=== PATIENT | female | born 2000 | race Caucasian/White ===

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

== ENCOUNTER 2025-08-16 07:36 | Inpatient (IN) ==
[2025-08-16] MEDS ORDERED: OXYTOCIN 30 UNITS/NSS 30 UNITS/500 ML BAG IV PRN (07:54)
[2025-08-16] MEDS ORDERED: LIDOCAINE 1% LOCAL 20 ML VIAL INFIL PRN (07:54)
[2025-08-16 08:23] LABS: Hematocrit (blood only) 29.6 % (37.0-47.0); Hemoglobin 9.1 g/dl (12.0-16.0); Mean Corpuscular Hemoglobin 23.6 pg (25.0-34.0); Mean Corpuscular Volume 76.9 fL (80.0-100.0); Platelet Count 277 K/uL (130-400); RDW Standard Deviation 43.3 fL (36.4-46.3); Red Blood Count 3.85 M/uL (4.20-5.40); White Blood Count 11.53 K/ul (4.8-10.8)
--- NOTE | 2025-08-16 08:39 | History & Physical Report ---
Date of Service August 16, 2025 Assessment & Plan (1) Normal labor: Plan: Pt is a 25yo at 39w 6d with obesity presenting for induction of labor Routine labs ordered Pitocin ordered Epidural placement on demand Monitor tracing Expectant management for labor, anticipate Rh+, Rubella immune Hepatitis B not immune, needs vaccine outpatient with PCP (2) Obesity affecting , antepartum: Admission and Anticipated Discharge Date Admission Date: August 16, 2025 History of Present Illness Primary Care Provider: Anu Maynard DO Pt is a 25y/o female currently at 39w 6d with an DAVID 08/17/25 who is here for induction of labor. Benavides bulb placed 08/15/25. Not feeling contractions; adequate movement; no fluid loss; no bloody show. Hx of obesity and insulin resistance. Had regular appointments with OB. OB Labs: Blood Type O Positive 01/25/25 Antibody Screen NEGATIVE 01/25/25 Hgb 9.8 g/dl (12.0-16.0) L 07/07/25 Hct 31.5 % (37.0-47.0) L 07/07/25 MCV 78.6 fL (80.0-100.0) L 01/25/25 Plt Count 370 K/uL (130-400) 01/25/25 Rubella IgG Antibody Immune (Immune) 01/25/25 RPR NON-REACTIVE (NON-REACTIVE) 03/19/23 Treponema pallidum Ab Negative (Negative) 06/04/25 Hep Bs Antigen Negative (Negative) 01/25/25 Hep Bs Antigen NON-REACTIVE (NON-REACTIVE) 03/19/23 Hepatitis C Antibody Negative (Negative) 01/25/25 Hepatitis C Ab (EIA) NON-REACTIVE (NON-REACTIVE) 03/19/23 HIV 1&2 Ab/P24 Ag 4thGn Negative (Negative) 01/25/25 HIV (1&2) Ag & Ab Conf NON-REACTIVE (NON-REACTIVE) 03/19/23 Glucose 1 Hr 50 gm 137 mg/dl (70-130) H 03/03/25 Maternal Serum AFP 21.0 ng/mL 03/03/25 Chlamydia trachomatis RNA Not Detected (NotDetected) 01/25/25 Neisseria gonorrhoeae RNA Not Detected (NotDetected) 01/25/25 Alpha Fetoprotein Triple Screen SEE NOTE 03/03/25 Labs Reviewed: afp neg low risk pano neg horizon Review of Systems : Denies fever, chills, sweats Denies shortness of breath, difficulty breathing, chest pain, palpitations, chest pressure, dysuria, headache, vision changes Allergies Allergy/AdvReac Type Severity Reaction Status Date / Time No Known Allergies Allergy Verified 08/15/25 19:42 Home Medications Medication Instructions Recorded Confirmed Type prenat.vits,sherry,[id number] 1 tab PO DAILY 03/14/23 08/16/25 History ferrous sulfate [Iron (ferrous 1 tab PO DAILY 06/10/25 08/16/25 History sulfate)] aspirin 81 mg tablet,delayed 1 mg PO DAILY 08/15/25 08/16/25 History release Patient History Medical History Insulin resistance Missed Anxiety History of chicken pox Pulmonary valve regurgitation Atrial septal defect Surgical History S/P wisdom tooth extraction S/P atrial septal defect closure, surgical (2019) History of tonsillectomy and adenoidectomy Family History Father Asthma Aunt Colorectal cancer Mother Thyroid cancer Denies family history of Ovarian cancer Breast cancer Social History (Updated 08/16/25 @ 07:57 by Briana Driver RN) Smoking Status: Never smoker Do You Dip or Chew Tobacco: No; Hx Alcohol Use: No Hx Substance Use: No Preferred Language: Martiniquais Communication Ability: Effective Visual Impairment: Limited Hearing Ability: Normal Senior [employer] Etl Developer Required: No Beliefs That Will Affect Care: None marital status: marital status details: jaja Watts (25) [phone] Current Living Situation: Spouse Current Living Situation Comment: lives with Tre and dog current occupational status: employed current occupation: [employer] Other Information That Helps Us Care for You: No Feels Safe at Home: Yes Safety Concerns: Feels Safe At This Time Diet: regular Physical Activity Frequency: Does not Exercise Gender Identity: Female Review of Systems per HPI Physical Exam Physical Exam: General: patient resting comfortably, NAD, non-toxic in appearance, AAOx4, answers questions appropriately. Skin: warm, dry, intact HEENT: NC/AT, anicteric sclera, conjunctiva without injection Heart: S1/S2 heard, regular, no m/r/g Lungs: equal air entry bilaterally, no rales/rhonchi/wheezes Abd: Normoactive BS, soft, NT/ND, gravid uterus Ext: warm, no clubbing/cyanosis or edema Neuro: nonfocal, speech intact, no facial droop, moving all extremities on command : FHR baseline 120, moderate variability, accelerations present, decelerations absent, rare contractions. Category 1 tracing Results & Data Vital Signs (Past 12 Hours) Vital Signs Temp Pulse Resp BP 08/16/25 07:51 36.7 C 97 H 20 142/74 H Resident Activity Tracking Resident Involvement: Resident Care Provided Care Provided: OB Delivery
[2025-08-16 08:40] LABS: Alanine Aminotransferase 28.0 U/L (7-52); Albumin Globulin Ratio 1.0 (0.9-2); Albumin Level 3.3 gm/dl (3.4-5.0); Alkaline Phosphatase 162.0 U/L (34-104); Anion Gap 7.0 (3-11); Bilirubin,Total 0.8 mg/dl (0.2-1.0); Blood Urea Nitrogen 6.0 mg/dl (6-23); Calcium 8.8 mg/dl (8.6-10.3); Carbon Dioxide 22.0 mmol/L (21-32); Chloride 107.0 mmol/L (98-107); Creatinine Clr Calc Pharmacy 197.3 ml/min; Globulin 3.3 gm/dl (2.5-4.0); Glucose 88.0 mg/dl (70-99(Fasting)); Potassium 4.0 mmol/L (3.5-5.1); Sodium 136.0 mmol/L (136-145); Total Protein 6.6 gm/dl (6.0-8.3)
[2025-08-16] MEDS: LACTATED RINGER'S 1,000 ML IV PRN (09:23)
[2025-08-16] MEDS: OXYTOCIN 30 UNITS/NSS 30 UNITS/500 ML BAG IV PRN (09:28)
[2025-08-16] MEDS ORDERED: NALOXONE HCL 1 MG in SODIUM CHLORIDE 0.9% 1,000 ML IV PRN (12:55)
[2025-08-16] MEDS ORDERED: NALBUPHINE HCL INJ 10 MG/ML AMP IV PRN (12:55)
[2025-08-16] MEDS ORDERED: BUPIVACAINE 0.25% PF 30 ML VIAL EPI PRN (12:55)
[2025-08-16] MEDS ORDERED: ROPIVACAINE 0.5% PF 5 MG/ML 20 ML VIAL EPI PRN (12:55)
[2025-08-16] MEDS ORDERED: diphenhydrAMINE 50 MG/ML VIAL IV PRN (12:55)
[2025-08-16] MEDS ORDERED: NALOXONE HCL 0.4 MG/1 ML VIAL/CARP IV PRN (12:55)
[2025-08-16] MEDS ORDERED: SODIUM CHLORIDE 0.9% PF INJ 10 ML VIAL EPI PRN (12:55)
[2025-08-16] MEDS ORDERED: LIDOCAINE 2% MPF LOCAL 5 ML VIAL EPI PRN (12:55)
[2025-08-16] MEDS ORDERED: ONDANSETRON INJ 2 MG/ML 2 ML VIAL IV PRN (12:55)
--- NOTE | 2025-08-16 12:56 | Anesthesiology Consultation ---
Date of Service August 16, 2025 History Height/Weight Height: 5 ft 3 in Weight: 128.457 kg Allergies Allergy/AdvReac Type Severity Reaction Status Date / Time No Known Allergies Allergy Verified 08/15/25 19:42 Medications Home Medications Medication Instructions Recorded Confirmed Last Taken prenat.vits,sherry,kgn-[id number] 1 tab PO DAILY 03/14/23 08/16/25 08/15/25 07:45 ferrous sulfate [Iron (ferrous 1 tab PO DAILY 06/10/25 08/16/25 08/15/25 20:00 sulfate)] aspirin 81 mg tablet,delayed 1 mg PO DAILY 08/15/25 08/16/25 08/15/25 07:45 release Active Medications Generic Name Dose Route Start Last Admin Trade Name Freq PRN Reason Stop Dose Admin Oxytocin 30 units in 500 mls @ 13 mls/hr 08/16/25 07:55 08/16/25 12:38 Pitocin 30 Units/Nss IV 08/18/25 07:54 0.78 units/hr .Q24H PRN 13 mls/hr Labor Induction/Augmentation Titration Protocol 0.78 UNITS/HR Lactated Ringer's 1,000 mls @ 125 mls/hr 08/16/25 07:54 08/16/25 12:38 Lr IV 08/18/25 07:53 999 mls/hr .Q8H PRN Infusion L&D Protocol Protocol Past Medical History Medical History Insulin resistance Missed Anxiety History of chicken pox Pulmonary valve regurgitation Atrial septal defect Exercise / Class Metabolic Activity II 4-5 Yardwork/Stairs/Walk up hill Past Family History Family History Father Asthma Aunt Colorectal cancer Mother Thyroid cancer Denies family history of Ovarian cancer Breast cancer Past Surgical History Surgical History S/P wisdom tooth extraction S/P atrial septal defect closure, surgical (2019) History of tonsillectomy and adenoidectomy Social History Smoking Status: Never smoker Do You Dip or Chew Tobacco: No Hx Alcohol Use: No Hx Substance Use: No Physical Exam Vital Signs Last Vital Signs Temp 36.6 C 08/16/25 11:58 Pulse 90 08/16/25 13:16 Resp 16 08/16/25 13:06 BP 119/63 08/16/25 13:16 Pulse Ox 100 08/16/25 13:15 Testing Laboratory Results 08/16/25 08:05 08/16/25 08:05 Blood Type O Positive 08/16/25 08:05 Antibody Screen NEGATIVE 08/16/25 08:05
[2025-08-16] MEDS: LIDOCAINE 2%/EPINEPHRINE 1:200,000 20 ML PF ONE (13:27)
[2025-08-16] MEDS: BUPIVACAINE 0.25% PF 30 ML VIAL ONE (13:27)
[2025-08-16] MEDS: fentANYL 2 MCG/ML BUPIVacaine 0.125%-NSS 100ML BAG ONE (13:28)
[2025-08-16] MEDS: SODIUM CHLORIDE 0.9% PF INJ 10 ML VIAL ONE (13:38)
[2025-08-16] MEDS: LIDOCAINE 2%/EPINEPHRINE 1:200,000 20 ML PF EPI STA (20:47)
[2025-08-16] MEDS: BUPIVACAINE 0.25% PF 30 ML VIAL EPI STA (20:47)
[2025-08-16] MEDS: SODIUM CHLORIDE 0.9% PF INJ 10 ML VIAL EPI STA (20:49)
--- NOTE | 2025-08-16 22:49 | Labor Progress Brief Note ---
Date of Service August 16, 2025 Subjective Comfortable with epidural. Assessment & Plan (1) Encounter for induction of labor: Plan: IOL due to obesity, BMI >40. Cervical rivera placed last night, before which cervix was cl/th/hi. This morning, cervix had external os 4cm which was reported as her exam, but internal os 1-2cm on my first check. This suggests rivera balloon was in, rather than above, the cervical canal, and the internal os was minimally dilated when pit began. Pitocin was run through the day today bringing internal os to 2-3cm. AROM was then performed. Pitocin reached 19 mu/min and internal os was still just 2-3cm, with contractions spacing apart. Receptor saturation was suspected, and a pit break was used. Resumption of pitocin proceeded after the break, with contraction pattern Q2- 3min at 7 mu/min. Internal os now matches external os at 4cm. FSE and IUPC placed at nursing request as patient is repositioning frequently and obesity makes monitoring difficult. Now seeing FHT Cat 1 after repositioning, [place] Q3 and individual contractions each about 50 MVU with pit @ 7, monitors both reading well. Admission and Anticipated Discharge Date Admission Date: August 16, 2025 Physical Exam Genitourinary: /-1 LOF Clear FSE and IUPC placed Pit @ 7 FHT Cat 1 prior to exam, 2x late decels seen after exam that resolved with repositioning. Results & Data Vital Signs (Past 12 Hours) Vital Signs Temp Pulse Resp BP Pulse Ox 08/16/25 22:45 113 H 98 08/16/25 22:40 92 H 100 08/16/25 22:35 91 H 98 08/16/25 22:31 101 H 114/67 08/16/25 22:30 96 H 100 08/16/25 22:25 100 H 99 08/16/25 22:20 99 H 98 08/16/25 22:16 93 H 114/57 L 08/16/25 22:15 90 98 08/16/25 22:10 104 H 100 08/16/25 22:05 97 H 100 08/16/25 22:02 97 H 113/60 08/16/25 22:00 89 97 08/16/25 21:55 97 H 98 08/16/25 21:50 90 98 08/16/25 21:46 94 H 108/58 L 08/16/25 21:45 83 97 08/16/25 21:40 94 H 97 08/16/25 21:35 97 H 98 08/16/25 21:31 95 H 113/57 L 08/16/25 21:30 94 H 97 08/16/25 21:25 97 H 98 08/16/25 21:20 97 H 98 08/16/25 21:16 97 H 115/58 L 08/16/25 21:15 96 H 98 08/16/25 21:10 98 H 99 08/16/25 21:05 96 H 99 08/16/25 21:01 98.2 F 95 H 18 118/62 08/16/25 21:00 97 H 100 08/16/25 20:55 101 H 99 08/16/25 20:50 95 H 99 08/16/25 20:47 100 H 117/63 08/16/25 20:45 91 H 99 08/16/25 20:40 105 H 99 08/16/25 20:35 97 H 98 08/16/25 20:31 98 H 118/65 08/16/25 20:30 105 H 99 08/16/25 20:25 103 H 99 08/16/25 20:20 93 H 99 08/16/25 20:17 96 H 128/67 08/16/25 20:15 98 H 99 08/16/25 20:10 108 H 99 08/16/25 20:05 104 H 99 08/16/25 20:02 106 H 120/65 08/16/25 20:00 102 H 99 08/16/25 19:55 98 H 100 08/16/25 19:50 93 H 99 08/16/25 19:45 93 H 99 08/16/25 19:40 93 H 99 08/16/25 19:35 93 H 99 08/16/25 19:31 89 141/88 H 08/16/25 19:30 90 98 08/16/25 19:25 90 100 08/16/25 19:20 98 H 100 08/16/25 19:17 93 H 140/81 08/16/25 19:15 87 99 08/16/25 19:10 95 H 100 08/16/25 19:05 97 H 99 08/16/25 19:01 83 143/76 H 08/16/25 19:00 98.2 F 18 08/16/25 19:00 93 H 99 08/16/25 18:55 87 98 08/16/25 18:50 93 H 100 08/16/25 18:47 89 137/85 08/16/25 18:45 93 H 97 08/16/25 18:40 88 100 08/16/25 18:35 95 H 100 08/16/25 18:32 87 141/82 H 08/16/25 18:30 92 H 99 08/16/25 18:25 91 H 99 08/16/25 18:20 93 H 99 08/16/25 18:16 98.2 F 100 H 18 133/79 08/16/25 18:15 93 H 98 08/16/25 18:10 88 98 08/16/25 18:05 96 H 97 08/16/25 18:02 92 H 142/85 H 08/16/25 18:00 94 H 98 08/16/25 17:55 101 H 99 08/16/25 17:50 101 H 99 08/16/25 17:46 96 H 141/72 H 08/16/25 17:45 97 H 100 08/16/25 17:40 104 H 100 08/16/25 17:35 107 H 100 08/16/25 17:32 100 H 142/86 H 08/16/25 17:30 96 H 98 08/16/25 17:25 99 H 98 08/16/25 17:24 98.1 F 18 08/16/25 17:20 93 H 99 08/16/25 17:16 97 H 145/88 H 08/16/25 17:15 88 100 08/16/25 17:10 96 H 100 08/16/25 17:05 94 H 99 08/16/25 17:03 86 135/77 08/16/25 17:00 85 100 08/16/25 16:55 85 100 08/16/25 16:50 82 100 08/16/25 16:46 88 137/73 08/16/25 16:45 84 100 08/16/25 16:40 92 H 100 08/16/25 16:35 86 100 08/16/25 16:31 81 142/76 H 08/16/25 16:30 83 100 08/16/25 16:25 91 H 100 08/16/25 16:20 85 100 08/16/25 16:16 90 141/83 H 08/16/25 16:15 98 H 100 08/16/25 16:10 90 99 08/16/25 16:05 93 H 100 08/16/25 16:03 82 140/74 08/16/25 16:00 92 H 100 08/16/25 15:57 88 91 08/16/25 15:55 96 H 100 08/16/25 15:50 82 100 08/16/25 15:47 78 131/77 08/16/25 15:45 83 100 08/16/25 15:40 81 100 08/16/25 15:35 77 100 08/16/25 15:31 83 149/78 H 08/16/25 15:30 98.2 F 20 08/16/25 15:30 88 100 08/16/25 15:25 85 100 08/16/25 15:20 79 100 08/16/25 15:16 82 127/75 08/16/25 15:15 83 100 08/16/25 15:10 80 100 08/16/25 15:05 80 100 08/16/25 15:02 73 134/73 08/16/25 15:00 78 100 08/16/25 14:55 85 100 08/16/25 14:50 78 100 08/16/25 14:48 86 140/77 08/16/25 14:45 105 H 100 08/16/25 14:40 79 100 08/16/25 14:35 74 100 08/16/25 14:31 84 119/67 08/16/25 14:30 86 100 08/16/25 14:25 79 100 08/16/25 14:20 85 100 08/16/25 14:17 88 123/71 08/16/25 14:15 98.1 F 18 08/16/25 14:15 81 100 08/16/25 14:10 82 100 08/16/25 14:05 92 H 100 08/16/25 14:02 93 H 127/72 08/16/25 14:00 81 100 08/16/25 13:55 90 100 08/16/25 13:50 82 100 08/16/25 13:47 85 121/59 L 08/16/25 13:45 83 100 08/16/25 13:40 87 100 08/16/25 13:35 88 100 08/16/25 13:30 85 112/62 100 08/16/25 13:28 88 113/61 08/16/25 13:26 107 H 107/60 08/16/25 13:25 102 H 100 08/16/25 13:24 102 H 103/56 L 08/16/25 13:22 96 H 109/55 L 08/16/25 13:20 118 H 100 08/16/25 13:16 90 119/63 08/16/25 13:15 98.2 F 20 08/16/25 13:15 92 H 100 08/16/25 13:10 97 H 100 08/16/25 13:06 107 H 16 136/65 08/16/25 13:05 112 H 100 08/16/25 11:58 97.9 F 20 08/16/25 11:57 90 145/77 H 08/16/25 11:12 82 18 136/75 08/16/25 10:56 89 128/77 Coding Level of Care Code None Diagnoses Encounter for induction of labor Z34.90
[2025-08-16] MEDS: fentANYL 2 MCG/ML BUPIVacaine 0.125%-NSS 100ML BAG EPI PRN (22:50)
--- NOTE | 2025-08-17 05:04 | Labor Progress Brief Note ---
Date of Service August 17, 2025 Subjective Comfortable with epidural Assessment & Plan (1) Encounter for induction of labor: Plan: Adequate labor for >6 hours without dilation beyond 4cm. FTP diagnosed and patient advised of recommendation for . Patient, FOB and her mom all counseled and agree to proceed, consent signed, all questions answered. Admission and Anticipated Discharge Date Admission Date: August 16, 2025 Physical Exam Genitourinary: Cervix remains 4/50/-1, unchanged LOF clear FHT Cat1 [place] Q3 MVU adequate for >6 hours at this point Results & Data Vital Signs (Past 12 Hours) Vital Signs Temp Pulse Resp BP Pulse Ox 08/17/25 05:00 99 H 99 08/17/25 04:55 102 H 99 08/17/25 04:50 100 H 99 08/17/25 04:45 100 H 100 08/17/25 04:40 95 H 98 08/17/25 04:35 93 H 99 08/17/25 04:31 91 H 132/80 08/17/25 04:30 100 H 99 08/17/25 04:25 102 H 99 08/17/25 04:20 83 98 08/17/25 04:16 100 H 124/72 08/17/25 04:15 86 98 08/17/25 04:10 89 97 08/17/25 04:05 90 97 08/17/25 04:01 91 H 122/66 08/17/25 04:00 86 99 08/17/25 03:55 90 97 08/17/25 03:50 88 98 08/17/25 03:46 79 122/62 08/17/25 03:45 88 96 08/17/25 03:40 92 H 98 08/17/25 03:37 18 08/17/25 03:37 98.1 F 18 08/17/25 03:35 94 H 98 08/17/25 03:33 103 H 117/58 L 08/17/25 03:30 90 98 08/17/25 03:25 92 H 97 08/17/25 03:20 93 H 98 08/17/25 03:17 94 H 112/56 L 08/17/25 03:15 101 H 98 08/17/25 03:10 93 H 98 08/17/25 03:05 96 H 99 08/17/25 03:02 94 H 111/60 10/22/25 03:00 95 H 98 08/17/25 02:55 98 H 98 08/17/25 02:50 99 H 98 08/17/25 02:47 93 H 112/59 L 08/17/25 02:45 93 H 98 08/17/25 02:40 89 98 08/17/25 02:35 91 H 98 08/17/25 02:31 90 99/57 L 08/17/25 02:30 93 H 98 08/17/25 02:25 96 H 97 08/17/25 02:20 87 100 08/17/25 02:17 89 96/57 L 08/17/25 02:15 93 H 98 08/17/25 02:10 90 98 08/17/25 02:05 93 H 98 08/17/25 02:01 90 102/51 L 08/17/25 02:00 95 H 97 08/17/25 01:55 92 H 98 08/17/25 01:50 87 97 08/17/25 01:46 86 107/61 08/17/25 01:45 77 100 08/17/25 01:40 94 H 97 08/17/25 01:35 86 98 08/17/25 01:31 86 108/57 L 08/17/25 01:30 84 99 08/17/25 01:25 84 98 08/17/25 01:24 18 08/17/25 01:24 98.2 F 18 08/17/25 01:21 92 H 110/63 08/17/25 01:20 93 H 99 08/17/25 01:15 96 H 97 08/17/25 01:10 76 98 08/17/25 01:05 96 H 98 08/17/25 01:00 100 H 98 08/17/25 00:55 96 H 98 08/17/25 00:50 93 H 97 08/17/25 00:47 88 109/57 L 08/17/25 00:45 81 98 08/17/25 00:40 89 97 08/17/25 00:35 89 98 08/17/25 00:32 91 H 129/71 08/17/25 00:30 95 H 97 08/17/25 00:25 94 H 97 08/17/25 00:20 84 98 08/17/25 00:18 92 H 119/58 L 08/17/25 00:15 95 H 97 08/17/25 00:10 89 96 08/17/25 00:05 89 97 08/17/25 00:02 88 133/75 08/17/25 00:00 81 96 08/16/25 23:55 90 97 08/16/25 23:50 92 H 96 08/16/25 23:47 93 H 115/61 08/16/25 23:45 82 97 08/16/25 23:40 88 99 08/16/25 23:35 80 98 08/16/25 23:33 97 H 126/61 08/16/25 23:30 94 H 99 08/16/25 23:25 100 H 100 08/16/25 23:20 92 H 98 08/16/25 23:18 94 H 130/71 08/16/25 23:15 108 H 99 08/16/25 23:10 100 H 97 08/16/25 23:05 95 H 100 08/16/25 23:02 100 H 136/73 08/16/25 23:01 16 08/16/25 23:01 98.1 F 16 08/16/25 23:00 99 H 97 08/16/25 22:55 97 H 97 08/16/25 22:50 103 H 97 08/16/25 22:45 113 H 98 08/16/25 22:40 92 H 100 08/16/25 22:35 91 H 98 08/16/25 22:31 101 H 114/67 08/16/25 22:30 96 H 100 08/16/25 22:25 100 H 99 08/16/25 22:20 99 H 98 08/16/25 22:16 93 H 114/57 L 08/16/25 22:15 90 98 08/16/25 22:10 104 H 100 08/16/25 22:05 97 H 100 08/16/25 22:02 97 H 113/60 08/16/25 22:00 89 97 08/16/25 21:55 97 H 98 08/16/25 21:50 90 98 08/16/25 21:46 94 H 108/58 L 08/16/25 21:45 83 97 08/16/25 21:40 94 H 97 08/16/25 21:35 97 H 98 08/16/25 21:31 95 H 113/57 L 08/16/25 21:30 94 H 97 08/16/25 21:25 97 H 98 08/16/25 21:20 97 H 98 08/16/25 21:16 97 H 115/58 L 08/16/25 21:15 96 H 98 08/16/25 21:10 98 H 99 08/16/25 21:05 96 H 99 08/16/25 21:01 98.2 F 95 H 18 118/62 08/16/25 21:00 97 H 100 08/16/25 20:55 101 H 99 08/16/25 20:50 95 H 99 08/16/25 20:47 100 H 117/63 08/16/25 20:45 91 H 99 08/16/25 20:40 105 H 99 08/16/25 20:35 97 H 98 08/16/25 20:31 98 H 118/65 08/16/25 20:30 105 H 99 08/16/25 20:25 103 H 99 08/16/25 20:20 93 H 99 08/16/25 20:17 96 H 128/67 08/16/25 20:15 98 H 99 08/16/25 20:10 108 H 99 08/16/25 20:05 104 H 99 08/16/25 20:02 106 H 120/65 08/16/25 20:00 102 H 99 08/16/25 19:55 98 H 100 08/16/25 19:50 93 H 99 08/16/25 19:45 93 H 99 08/16/25 19:40 93 H 99 08/16/25 19:35 93 H 99 08/16/25 19:31 89 141/88 H 08/16/25 19:30 90 98 08/16/25 19:25 90 100 08/16/25 19:20 98 H 100 08/16/25 19:17 93 H 140/81 08/16/25 19:15 87 99 08/16/25 19:10 95 H 100 08/16/25 19:05 97 H 99 08/16/25 19:01 83 143/76 H 08/16/25 19:00 98.2 F 18 08/16/25 19:00 93 H 99 08/16/25 18:55 87 98 08/16/25 18:50 93 H 100 08/16/25 18:47 89 137/85 08/16/25 18:45 93 H 97 08/16/25 18:40 88 100 08/16/25 18:35 95 H 100 08/16/25 18:32 87 141/82 H 08/16/25 18:30 92 H 99 08/16/25 18:25 91 H 99 08/16/25 18:20 93 H 99 08/16/25 18:16 98.2 F 100 H 18 133/79 08/16/25 18:15 93 H 98 08/16/25 18:10 88 98 08/16/25 18:05 96 H 97 08/16/25 18:02 92 H 142/85 H 08/16/25 18:00 94 H 98 08/16/25 17:55 101 H 99 08/16/25 17:50 101 H 99 08/16/25 17:46 96 H 141/72 H 08/16/25 17:45 97 H 100 08/16/25 17:40 104 H 100 08/16/25 17:35 107 H 100 08/16/25 17:32 100 H 142/86 H 08/16/25 17:30 96 H 98 08/16/25 17:25 99 H 98 08/16/25 17:24 98.1 F 18 08/16/25 17:20 93 H 99 08/16/25 17:16 97 H 145/88 H 08/16/25 17:15 88 100 08/16/25 17:10 96 H 100 08/16/25 17:05 94 H 99 08/16/25 17:03 86 135/77 Coding Level of Care Code None Diagnoses Encounter for induction of labor Z34.90
[2025-08-17] MEDS ORDERED: LACTATED RINGER'S 1,000 ML IV SCH ×3 (05:15→06:42)
[2025-08-17] MEDS ORDERED: MoRPHine SULFATE PF 1 MG/ML 10 ML AMP/VIAL ONE (05:18)
[2025-08-17] MEDS ORDERED: METOCLOPRAMIDE HCL INJ 5 MG/ML 2 ML VIAL ONE (05:19)
[2025-08-17] MEDS ORDERED: ONDANSETRON INJ 2 MG/ML 2 ML VIAL ONE (05:19)
[2025-08-17] MEDS ORDERED: OXYTOCIN 10 UNITS/ML VIAL ONE (05:19)
[2025-08-17] MEDS ORDERED: DEXAMETHASONE SOD INJ 4 MG/ML VIAL ONE (05:19)
[2025-08-17] MEDS: ACETAMINOPHEN 500 MG TAB PO SCH (05:25)
[2025-08-17] MEDS: CITRIC ACID/SODIUM CITRATE 15 ML UDC PO SCH (05:26)
[2025-08-17] MEDS ORDERED: PHENYLEPHRINE HCL 10 MG/ML VIAL ONE (05:27)
[2025-08-17] MEDS ORDERED: LIDOCAINE 2%/EPINEPHRINE 1:200,000 20 ML PF ONE (05:30)
[2025-08-17] MEDS: ceFAZolin 3000MG 3,000 MG/72.5 ML BAG IV SCH (05:37)
[2025-08-17] MEDS ORDERED: NALBUPHINE HCL INJ 10 MG/ML AMP IV PRN (06:10)
[2025-08-17] MEDS ORDERED: ONDANSETRON INJ 2 MG/ML 2 ML VIAL IV PRN (06:10)
[2025-08-17] MEDS ORDERED: LACTATED RINGER'S 500 ML IV PRN (06:10)
[2025-08-17] MEDS ORDERED: diphenhydrAMINE 50 MG/ML VIAL IV PRN (06:10)
[2025-08-17] MEDS ORDERED: PROMETHAZINE 6.25 MG/50.25 ML BAG IV PRN (06:10)
[2025-08-17] MEDS ORDERED: NALOXONE HCL 0.4 MG/1 ML VIAL/CARP IV PRN (06:10)
[2025-08-17] MEDS ORDERED: MoRPHine SULFATE 4 MG/ML 1 ML CARP\\VIAL IV PRN (06:10)
[2025-08-17] MEDS ORDERED: NALOXONE HCL 1 MG in SODIUM CHLORIDE 0.9% 1,000 ML IV PRN (06:10)
[2025-08-17] MEDS ORDERED: NALOXONE HCL 0.08 MG in SYRINGE 1.8 ML IV PRN (06:10)
[2025-08-17] MEDS ORDERED: NO NARCOTICS OR SEDATIVES SCH (06:15)
[2025-08-17] MEDS ORDERED: DC INTRASPINAL MORPHINE SCH (06:15)
--- NOTE | 2025-08-17 06:32 | Operative Report ---
PG Post Operative Report Pre & Post Diagnosis Operation Date: 08/17/25 05:25 Pre-Op Diagnosis: Primary Csection, Failure to Progress Post-Op Diagnosis: Primary Csection, Failure to progress, with delivery of Live male infant I identified the patient and participated in the time-out.: Yes Procedure Operation Date: 08/17/25 05:25 Primary Low Transverse section Surgeon Mulu Allen MD Elevator Constructor Hydraulic Catrachito Estimated Blood Loss 364 Findings Consistent with Post-Op Diagnosis Specimens placenta, cord blood Anesthesia Type Spinal Complications none Disposition Accompanied Patient To Recovery: Yes Disposition: L&D Description of Procedure The patient was placed operating table in the supine position with a leftward tilt. She was prepped and draped in standard sterile fashion. The anesthetic was tested and found to be adequate. A time-out was held, identifying correct patient, procedure, positioning and preoperative antibiotics. There were no concerns. A Pfannenstiel skin incision was made with a knife and taken down to the underlying layer of fascia. The fascia was incised in the midline with the knife and taken out laterally with scissors. The superior edge of the fascial incision was grasped, elevated and dissected off the underlying rectus both superiorly and inferiorly. The muscles were bluntly in the midline. The peritoneum was entered bluntly. The incision was then stretched. The Petr retractor was placed. The vesicouterine peritoneum was identified, entered with scissors and taken out laterally with scissors. The bladder flap was created digitally. A hysterotomy incision was created transversely in the lower uterine segment, final entry being accomplished in a blunt manner with the screener operator's fingers. Clear amniotic fluid was encountered. The screener operator's hand and a Kiwi cup were used to elevate the head to the hysterotomy. The head was delivered using mild fundal pressure, and the shoulders and body followed without difficulty. The cord was clamped and cut and the was then handed off to the awaiting auto service station attendant. Cord blood was obtained. The placenta was Manually extracted. The uterus was cleared of all clot and debris with moistened laparotomy sponges. The hysterotomy incision was repaired in two layers, the first in a running locked layer, the second in an imbricating layer. The ovaries and tubes were seen to be normal bilaterally. The gutters were cleared of clot and debris. A final inspection of the hysterotomy revealed good hemostasis. The Petr was removed. The rectus muscles were allowed to reapproximate naturally. The fascia was then reapproximated with 1 Vicryl in a running nonlocked manner. The fascia was examined and found to be free of defect following closure. The subcutaneous tissue was copiously irrigated and reapproximated with 0-chromic, then the skin edges were closed with 4-0 monocryl in a subcuticular fashion. A CARLOS MANUEL dressing was applied. The rivera was found to be draining clear yellow urine at completion of the procedure. I attest to the content of the Intraoperative Record and any orders documented therein. Any exceptions are noted below. I attest to the content of the Intraoperative Record and any orders documented therein. Any exceptions are noted below.
--- NOTE | 2025-08-17 06:38 | Anesthesia Procedure Note ---
Date of Service August 17, 2025 Anesthesia Post Epidural Note Vital Signs Vital Signs: Temp Pulse Resp BP Pulse Ox 36.7 C 94 H 18 154/82 H 98 08/17/25 03:37 08/17/25 05:36 08/17/25 03:37 08/17/25 05:02 08/17/25 05:36 Pain Intensity Abdomen: Pain Intensity: 0 Notes Mental Status: alert / awake / arousable and participated in evaluation Nausea / Vomiting: adequately controlled Pain: adequately controlled Airway Patency, RR, SpO2: stable & adequate BP & HR: stable & adequate Hydration State: stable & adequate Neuraxial Anesthesia: was administered and sensory block is resolving Anesthetic Complications: no major complications apparent Epidural: Removed without complications and With tip intact
[2025-08-17] MEDS ORDERED: SENNA 8.6 MG TAB PO PRN (06:42)
[2025-08-17] MEDS ORDERED: MAGNESIUM HYDROXIDE SUSP 30 ML UDC PO PRN (06:42)
[2025-08-17] MEDS ORDERED: HYDROCORTISONE ACETATE 25 MG SUPP PR PRN (06:42)
[2025-08-17] MEDS ORDERED: BENZOCAINE 20% SPRY 85 APPLN/85 GM CAN EXT PRN (06:42)
[2025-08-17] MEDS ORDERED: CALCIUM CARBONATE 500 MG CHEWABLE TAB PO PRN (06:42)
--- NOTE | 2025-08-17 07:10 | Anesthesiology Progress Note ---
Date of Service August 17, 2025 Anesthesia Post Procedure Vital Signs Vital Signs: Temp Pulse Resp BP Pulse Ox 08/17/25 07:08 100 H 97 08/17/25 07:03 92 H 98 08/17/25 06:59 92 H 112/58 L 08/17/25 06:58 96 H 95 08/17/25 06:57 97 H 90 08/17/25 06:53 90 98 08/17/25 06:49 18 08/17/25 06:49 94 H 114/59 L 08/17/25 06:48 96 H 100 08/17/25 06:43 94 08/17/25 06:43 93 H 08/17/25 06:43 94 H 96 08/17/25 06:39 36.8 C 18 08/17/25 06:39 88 123/56 L 08/17/25 05:36 94 H 98 08/17/25 05:31 99 H 99 08/17/25 05:26 113 H 97 08/17/25 05:21 104 H 98 08/17/25 05:16 103 H 98 08/17/25 05:10 101 H 97 08/17/25 05:05 102 H 98 08/17/25 05:02 100 H 154/82 H 08/17/25 05:00 99 H 99 08/17/25 04:55 102 H 99 08/17/25 04:50 100 H 99 08/17/25 04:45 100 H 100 08/17/25 04:40 95 H 98 08/17/25 04:35 93 H 99 08/17/25 04:31 91 H 132/80 08/17/25 04:30 100 H 99 08/17/25 04:25 102 H 99 08/17/25 04:20 83 98 08/17/25 04:16 100 H 124/72 08/17/25 04:15 86 98 08/17/25 04:10 89 97 08/17/25 04:05 90 97 08/17/25 04:01 91 H 122/66 08/17/25 04:00 86 99 08/17/25 03:55 90 97 08/17/25 03:50 88 98 08/17/25 03:46 79 122/62 08/17/25 03:45 88 96 08/17/25 03:40 92 H 98 08/17/25 03:37 18 08/17/25 03:37 36.7 C 18 08/17/25 03:35 94 H 98 08/17/25 03:33 103 H 117/58 L 08/17/25 03:30 90 98 08/17/25 03:25 92 H 97 08/17/25 03:20 93 H 98 08/17/25 03:17 94 H 112/56 L 08/17/25 03:15 101 H 98 08/17/25 03:10 93 H 98 08/17/25 03:05 96 H 99 08/17/25 03:02 94 H 111/60 08/17/25 03:00 95 H 98 08/17/25 02:55 98 H 98 08/17/25 02:50 99 H 98 08/17/25 02:47 93 H 112/59 L 08/17/25 02:45 93 H 98 08/17/25 02:40 89 98 08/17/25 02:35 91 H 98 08/17/25 02:31 90 99/57 L 08/17/25 02:30 93 H 98 08/17/25 02:25 96 H 97 08/17/25 02:20 87 100 08/17/25 02:17 89 96/57 L 08/17/25 02:15 93 H 98 08/17/25 02:10 90 98 08/17/25 02:05 93 H 98 08/17/25 02:01 90 102/51 L 08/17/25 02:00 95 H 97 08/17/25 01:55 92 H 98 08/17/25 01:50 87 97 08/17/25 01:46 86 107/61 08/17/25 01:45 77 100 08/17/25 01:40 94 H 97 08/17/25 01:35 86 98 08/17/25 01:31 86 108/57 L 08/17/25 01:30 84 99 08/17/25 01:25 84 98 08/17/25 01:24 18 08/17/25 01:24 36.8 C 18 08/17/25 01:21 92 H 110/63 08/17/25 01:20 93 H 99 08/17/25 01:15 96 H 97 08/17/25 01:10 76 98 08/17/25 01:05 96 H 98 08/17/25 01:00 100 H 98 08/17/25 00:55 96 H 98 08/17/25 00:50 93 H 97 08/17/25 00:47 88 109/57 L 08/17/25 00:45 81 98 08/17/25 00:40 89 97 08/17/25 00:35 89 98 08/17/25 00:32 91 H 129/71 08/17/25 00:30 95 H 97 08/17/25 00:25 94 H 97 08/17/25 00:20 84 98 08/17/25 00:18 92 H 119/58 L 08/17/25 00:15 95 H 97 08/17/25 00:10 89 96 08/17/25 00:05 89 97 08/17/25 00:02 88 133/75 08/17/25 00:00 81 96 08/16/25 23:55 90 97 08/16/25 23:50 92 H 96 08/16/25 23:47 93 H 115/61 08/16/25 23:45 82 97 08/16/25 23:40 88 99 08/16/25 23:35 80 98 08/16/25 23:33 97 H 126/61 08/16/25 23:30 94 H 99 08/16/25 23:25 100 H 100 08/16/25 23:20 92 H 98 08/16/25 23:18 94 H 130/71 08/16/25 23:15 108 H 99 08/16/25 23:10 100 H 97 08/16/25 23:05 95 H 100 08/16/25 23:02 100 H 136/73 08/16/25 23:01 16 08/16/25 23:01 36.7 C 16 08/16/25 23:00 99 H 97 08/16/25 22:55 97 H 97 08/16/25 22:50 103 H 97 08/16/25 22:45 113 H 98 08/16/25 22:40 92 H 100 08/16/25 22:35 91 H 98 08/16/25 22:31 101 H 114/67 08/16/25 22:30 96 H 100 08/16/25 22:25 100 H 99 08/16/25 22:20 99 H 98 08/16/25 22:16 93 H 114/57 L 08/16/25 22:15 90 98 08/16/25 22:10 104 H 100 08/16/25 22:05 97 H 100 08/16/25 22:02 97 H 113/60 08/16/25 22:00 89 97 08/16/25 21:55 97 H 98 08/16/25 21:50 90 98 08/16/25 21:46 94 H 108/58 L 08/16/25 21:45 83 97 08/16/25 21:40 94 H 97 08/16/25 21:35 97 H 98 08/16/25 21:31 95 H 113/57 L 08/16/25 21:30 94 H 97 08/16/25 21:25 97 H 98 08/16/25 21:20 97 H 98 08/16/25 21:16 97 H 115/58 L 08/16/25 21:15 96 H 98 08/16/25 21:10 98 H 99 08/16/25 21:05 96 H 99 08/16/25 21:01 36.8 C 95 H 18 118/62 08/16/25 21:00 97 H 100 08/16/25 20:55 101 H 99 08/16/25 20:50 95 H 99 08/16/25 20:47 100 H 117/63 08/16/25 20:45 91 H 99 08/16/25 20:40 105 H 99 08/16/25 20:35 97 H 98 08/16/25 20:31 98 H 118/65 08/16/25 20:30 105 H 99 08/16/25 20:25 103 H 99 08/16/25 20:20 93 H 99 08/16/25 20:17 96 H 128/67 08/16/25 20:15 98 H 99 08/16/25 20:10 108 H 99 08/16/25 20:05 104 H 99 08/16/25 20:02 106 H 120/65 08/16/25 20:00 102 H 99 08/16/25 19:55 98 H 100 08/16/25 19:50 93 H 99 08/16/25 19:45 93 H 99 08/16/25 19:40 93 H 99 08/16/25 19:35 93 H 99 08/16/25 19:31 89 141/88 H 08/16/25 19:30 90 98 08/16/25 19:25 90 100 08/16/25 19:20 98 H 100 08/16/25 19:17 93 H 140/81 08/16/25 19:15 87 99 08/16/25 19:10 95 H 100 08/16/25 19:05 97 H 99 08/16/25 19:01 83 143/76 H 08/16/25 19:00 36.8 C 18 08/16/25 19:00 93 H 99 08/16/25 18:55 87 98 08/16/25 18:50 93 H 100 08/16/25 18:47 89 137/85 08/16/25 18:45 93 H 97 08/16/25 18:40 88 100 08/16/25 18:35 95 H 100 08/16/25 18:32 87 141/82 H 08/16/25 18:30 92 H 99 08/16/25 18:25 91 H 99 08/16/25 18:20 93 H 99 08/16/25 18:16 36.8 C 100 H 18 133/79 08/16/25 18:15 93 H 98 08/16/25 18:10 88 98 08/16/25 18:05 96 H 97 08/16/25 18:02 92 H 142/85 H 08/16/25 18:00 94 H 98 08/16/25 17:55 101 H 99 08/16/25 17:50 101 H 99 08/16/25 17:46 96 H 141/72 H 08/16/25 17:45 97 H 100 08/16/25 17:40 104 H 100 08/16/25 17:35 107 H 100 08/16/25 17:32 100 H 142/86 H 08/16/25 17:30 96 H 98 08/16/25 17:25 99 H 98 08/16/25 17:24 36.7 C 18 08/16/25 17:20 93 H 99 08/16/25 17:16 97 H 145/88 H 08/16/25 17:15 88 100 08/16/25 17:10 96 H 100 08/16/25 17:05 94 H 99 08/16/25 17:03 86 135/77 08/16/25 17:00 85 100 08/16/25 16:55 85 100 08/16/25 16:50 82 100 08/16/25 16:46 88 137/73 08/16/25 16:45 84 100 08/16/25 16:40 92 H 100 08/16/25 16:35 86 100 08/16/25 16:31 81 142/76 H 08/16/25 16:30 83 100 08/16/25 16:25 91 H 100 08/16/25 16:20 85 100 08/16/25 16:16 90 141/83 H 08/16/25 16:15 98 H 100 08/16/25 16:10 90 99 08/16/25 16:05 93 H 100 08/16/25 16:03 82 140/74 08/16/25 16:00 92 H 100 08/16/25 15:57 88 91 08/16/25 15:55 96 H 100 08/16/25 15:50 82 100 08/16/25 15:47 78 131/77 08/16/25 15:45 83 100 08/16/25 15:40 81 100 08/16/25 15:35 77 100 08/16/25 15:31 83 149/78 H 08/16/25 15:30 36.8 C 20 08/16/25 15:30 88 100 08/16/25 15:25 85 100 08/16/25 15:20 79 100 08/16/25 15:16 82 127/75 08/16/25 15:15 83 100 08/16/25 15:10 80 100 08/16/25 15:05 80 100 08/16/25 15:02 73 134/73 08/16/25 15:00 78 100 08/16/25 14:55 85 100 08/16/25 14:50 78 100 08/16/25 14:48 86 140/77 08/16/25 14:45 105 H 100 08/16/25 14:40 79 100 08/16/25 14:35 74 100 08/16/25 14:31 84 119/67 08/16/25 14:30 86 100 08/16/25 14:25 79 100 08/16/25 14:20 85 100 08/16/25 14:17 88 123/71 08/16/25 14:15 36.7 C 18 08/16/25 14:15 81 100 08/16/25 14:10 82 100 08/16/25 14:05 92 H 100 08/16/25 14:02 93 H 127/72 08/16/25 14:00 81 100 08/16/25 13:55 90 100 08/16/25 13:50 82 100 08/16/25 13:47 85 121/59 L 08/16/25 13:45 83 100 08/16/25 13:40 87 100 08/16/25 13:35 88 100 08/16/25 13:30 85 112/62 100 08/16/25 13:28 88 113/61 08/16/25 13:26 107 H 107/60 08/16/25 13:25 102 H 100 08/16/25 13:24 102 H 103/56 L 08/16/25 13:22 96 H 109/55 L 08/16/25 13:20 118 H 100 08/16/25 13:16 90 119/63 08/16/25 13:15 36.8 C 20 08/16/25 13:15 92 H 100 08/16/25 13:10 97 H 100 08/16/25 13:06 107 H 16 136/65 08/16/25 13:05 112 H 100 08/16/25 11:58 36.6 C 20 08/16/25 11:57 90 145/77 H 08/16/25 11:12 82 18 136/75 08/16/25 10:56 89 128/77 08/16/25 10:40 86 20 118/64 08/16/25 10:26 84 126/67 08/16/25 10:11 93 H 125/73 08/16/25 10:10 85 127/72 08/16/25 07:51 36.7 C 97 H 20 142/74 H Pain Intensity Abdomen: Pain Intensity: 0 Transfer of Care Handoff Completed per policy Notes Mental Status: alert / awake / arousable Patient Amnestic to Procedure: Yes Nausea / Vomiting: adequately controlled Pain: adequately controlled Airway Patency, RR, SpO2: stable & adequate BP & HR: stable & adequate Hydration State: stable & adequate Neuraxial Anesthesia: was administered and sensory block is resolving Anesthetic Complications: no major complications apparent
[2025-08-17] MEDS: KETOROLAC 30 MG/ML VIAL IV SCH (07:17)
[2025-08-17] MEDS: AZITHROMYCIN 500 MG/255 ML BAG IV ONE (07:30)
[2025-08-17] MEDS: OXYTOCIN 20 UNITS/LR 1,002 ML IV SCH (08:52)
[2025-08-17] MEDS ORDERED: SODIUM CHLORIDE 0.9% 100 ML IV PRN (09:16)
[2025-08-17] MEDS: MoRPHine SULFATE PF 1 MG/ML 10 ML AMP/VIAL EPI ONE (09:24)
[2025-08-17] MEDS: SODIUM CHLORIDE 0.9% 1,000 ML IV SCH (09:24)
[2025-08-17] MEDS: FERROUS SULFATE 325 MG TAB PO SCH (09:27)
[2025-08-17] MEDS: PRENATAL VITAMIN 1 TAB PO SCH (09:27)
[2025-08-17] MEDS: DOCUSATE SODIUM 100 MG CAP PO SCH (09:27)
[2025-08-17] MEDS: DIPHTHER/TETAN/PERTUS Vaccine (Tdap, Adol/Adult) 0.5mL IM ONE (09:29)
[2025-08-17] MEDS: ACETAMINOPHEN 325 MG TAB PO SCH (12:54)
[2025-08-17] MEDS: SIMETHICONE 80 MG CHEW PO SCH (12:54)
[2025-08-18] MEDS ORDERED: diphenhydrAMINE 50 MG/ML VIAL IV PRN (00:10)
[2025-08-18] MEDS ORDERED: diphenhydrAMINE Capsule 25 MG CAP PO PRN (00:10)
[2025-08-18] MEDS ORDERED: HYDROmorphone INJ 0.5 MG/0.5 ML SYR IV PRN (00:10)
[2025-08-18] MEDS ORDERED: PROMETHAZINE 12.5 MG/50.5 ML BAG IV PRN (00:10)
[2025-08-18] MEDS ORDERED: ONDANSETRON INJ 2 MG/ML 2 ML VIAL IV PRN (00:10)
[2025-08-18] MEDS ORDERED: KETOROLAC 30 MG/ML VIAL IV PRN (06:28)
[2025-08-18] MEDS: IBUPROFEN 600 MG TAB PO SCH (06:30)
[2025-08-18 06:40] LABS: Hematocrit (blood only) 27.2 % (37.0-47.0); Hemoglobin 8.7 g/dl (12.0-16.0); Immature Granulocytes # (auto) 0.13 K/uL (0.01-0.20); Immature Granulocytes % (auto) 0.8 %; Mean Corpuscular Hemoglobin 24.7 pg (25.0-34.0); Mean Corpuscular Volume 77.3 fL (80.0-100.0); Platelet Count 274 K/uL (130-400); RDW Standard Deviation 42.9 fL (36.4-46.3); Red Blood Count 3.52 M/uL (4.20-5.40); White Blood Count 17.22 K/ul (4.8-10.8)
--- NOTE | 2025-08-18 07:24 | Obstetrical Progress Note ---
Date of Service August 18, 2025 Assessment & Plan (1) care and examination: Plan: 25yo post-op day--1 s/p section Fells well today Continue post- care Encourage ambulation and Pain controlled Vitals and Hgb stable Admission and Anticipated Discharge Date Admission Date: August 16, 2025 Supervising Physician Co-Signing Physician Notes Resident Physician Supervision Note: I interviewed and examined the patient. Discussed with Dr. George and agree with findings and plan as documented in the note. Any exceptions or clarifications are listed here: Doing well. Voiding and ambulating. hgb from 9.1-->8.7. Routine ppd1 care. Documented By: Noelle Winston MD, FACOG Subjective 25yo post-op day 1 s/p section Ambulation: Ambulating normally Voiding: No voiding problems Passing Gas: Yes Diet Tolerance: regular diet Lochia:: Small Feeding Type:: Current Pain Level: 1/10 controlled with Tylenol, Ketorolac Resting comfortably this AM in NAD Denies TOBIAS, CP, SOB, N/V/D, LE pain/swelling Physical Exam Physical Exam: General: patient resting comfortably, NAD, non-toxic in appearance, answers questions appropriately Skin: warm, dry, intact Heart: S1/S2 heard, regular, no m/r/g Lungs: equal air entry bilaterally, no rales/rhonchi/wheezes Abd: Normoactive BS, soft, NT/ND, uterine fundus firm at umbilicus, CARLOS MANUEL dressing with a small quarter size area of old appearing blood on center of dressing Ext: warm, no clubbing/cyanosis or edema, Ralph's neg Neuro: nonfocal, patient AAOx4, speech intact, no facial droop, moving all extremities on command Results & Data Vital Signs (Past 12 Hours) Vital Signs Temp Pulse Resp BP Pulse Ox O2 Del Method 08/18/25 04:00 36.6 C 81 18 110/74 97 Room Air 08/18/25 01:00 18 98 08/18/25 00:15 20 96 08/18/25 00:15 36.9 C 89 20 111/70 96 Room Air 08/17/25 23:30 18 97 08/17/25 22:00 18 98 08/17/25 21:00 20 98 08/17/25 20:00 18 98 Resident Activity Tracking Resident Involvement: Resident Care Provided Care Provided: OB Delivery
[2025-08-18] MEDS ORDERED: Nursing to Pharmacy Communication SCH (15:45)
[2025-08-19] MEDS: IBUPROFEN 600 MG TAB PO ONE (03:46)
[2025-08-19 06:17] LABS: Hematocrit (blood only) 23.2 % (37.0-47.0); Hemoglobin 7.3 g/dl (12.0-16.0)
--- NOTE | 2025-08-19 07:11 | Obstetrical Progress Note ---
Date of Service August 19, 2025 Assessment & Plan (1) care and examination: Plan: 25yo post-op day--2 s/p section Fells well today Continue post- care Encourage ambulation and Encourage SCDs when resting Pain controlled Vitals stable Hemoglobin 8.7-->7.3, Asx, Recommend PO Iron supplementation Admission and Anticipated Discharge Date Admission Date: August 16, 2025 Supervising Physician Co-Signing Physician Notes Resident Physician Supervision Note: I was present with Dr. George during the history and exam. I discussed the case with the resident and agree with the findings and plan as documented in the note. Any exceptions or clarifications are listed here: doing well, eating, ambulating, +flatus, pain well controlled. abd soft obest nt, ff 2 down, carlos manuel dressing in place. ext nt calves. pod#2 s/p c/s, doing well, routine care. advised to use scds while in bed. hgb noted, she is derek well. breast. rhpos. ri. Documented By: Kandy Avila MD, FACOG Subjective 25yo post-op day 2 s/p section Ambulation: Ambulating normally Voiding: No voiding problems Passing Gas: Yes Diet Tolerance: regular diet Lochia:: Small Feeding Type:: Current Pain Level: 0/10 controlled with Tylenol, Ibuprofen Resting comfortably this AM in NAD Denies TOBIAS, CP, SOB, N/V/D, LE pain/swelling Review of Systems Review of Systems: per HPI Physical Exam Physical Exam: General: patient resting comfortably, NAD, non-toxic in appearance, answers questions appropriately Skin: warm, dry, intact Heart: S1/S2 heard, regular, no m/r/g Lungs: equal air entry bilaterally, no rales/rhonchi/wheezes Abd: Normoactive BS, soft, NT/ND, uterine fundus firm at umbilicus, CARLOS MANUEL dressing with a small quarter size area of old appearing blood on center of dressing Ext: warm, no clubbing/cyanosis or edema, Ralph's neg Neuro: nonfocal, patient AAOx4, speech intact, no facial droop, moving all extremities on command Results & Data Vital Signs (Past 12 Hours) Vital Signs Temp Pulse Resp BP Pulse Ox O2 Del Method 08/18/25 22:54 36.7 C 83 18 121/76 97 Room Air Resident Activity Tracking Resident Involvement: Resident Care Provided Care Provided: OB Delivery
[2025-08-19] MEDS ORDERED: ACETAMINOPHEN 325 MG TAB ONE (09:50)
[2025-08-19] MEDS: ACETAMINOPHEN 325 MG TAB PO PRN (20:23)
[2025-08-20] MEDS: IBUPROFEN 600 MG TAB PO PRN (01:26)
[2025-08-20 05:19] VITALS: RESP 16
--- NOTE | 2025-08-20 08:00 | Obstetrical Progress Note ---
Date of Service August 20, 2025 Assessment & Plan (1) care and examination: Plan: 25yo post-op day--3 s/p section Fells well today Continue post- care Encourage ambulation and Pain controlled Vitals stable D/c today. Follow up in OB office next week for CARLOS MANUEL dressing removal. Follow up in 6 weeks for routine visit. Admission and Anticipated Discharge Date Admission Date: August 16, 2025 Supervising Physician Co-Signing Physician Notes Resident Physician Supervision Note: I interviewed and examined the patient. Discussed with Dr. George and agree with findings and plan as documented in the note. Any exceptions or clarifications are listed here: doing well, meeting milestones POD#3 from CS. Uterus firm, carlos manuel dressing in place. LE trace edema. Plan for DC home today, scheduled for carlos manuel removal on Friday. Documented By: Sabrina Madera MD Subjective 25yo post-op day 3 s/p section Ambulation: Ambulating normally Voiding: No voiding problems Passing Gas: Yes Diet Tolerance: regular diet Lochia:: Small Feeding Type:: Current Pain Level: 0/10 controlled with Tylenol, Ibuprofen Resting comfortably this AM in NAD Denies TOBIAS, CP, SOB, N/V/D, LE pain/swelling Physical Exam Physical Exam: General: patient resting comfortably, NAD, non-toxic in appearance, answers questions appropriately Skin: warm, dry, intact Heart: S1/S2 heard, regular, no m/r/g Lungs: equal air entry bilaterally, no rales/rhonchi/wheezes Abd: Normoactive BS, soft, NT/ND, uterine fundus difficult to palpate below umbilicus, CARLOS MANUEL dressing with a small quarter size area of old appearing blood on center of dressing Ext: warm, no clubbing/cyanosis or edema Neuro: nonfocal, patient AAOx4, speech intact, no facial droop, moving all extremities on command Results & Data Vital Signs (Past 12 Hours) Vital Signs Temp Pulse Resp BP Pulse Ox O2 Del Method 08/20/25 03:50 37.0 C 81 16 137/83 97 Room Air 08/19/25 22:11 36.7 C 92 H 18 134/81 97 Room Air Resident Activity Tracking Resident Involvement: Resident Care Provided Care Provided: OB Delivery
[2025-08-20 09:11] VITALS: BP 131/93; PULSE 83; TEMP 98.1; O2SAT 99
--- NOTE | 2025-08-23 16:33 | Discharge Summary ---
Date of Service August 23, 2025 Admission HPI Per Admitting Provider Pt is a 25y/o female currently at 39w 6d with an DAVID 08/17/25 who is here for induction of labor. Benavides bulb placed 08/15/25. Not feeling contractions; adequate movement; no fluid loss; no bloody show. Hx of obesity and insulin resistance. Had regular appointments with OB. OB Labs: Blood Type O Positive 01/25/25 Antibody Screen NEGATIVE 01/25/25 Hgb 9.8 g/dl (12.0-16.0) L 07/07/25 Hct 31.5 % (37.0-47.0) L 07/07/25 MCV 78.6 fL (80.0-100.0) L 01/25/25 Plt Count 370 K/uL (130-400) 01/25/25 Rubella IgG Antibody Immune (Immune) 01/25/25 RPR NON-REACTIVE (NON-REACTIVE) 03/19/23 Treponema pallidum Ab Negative (Negative) 06/04/25 Hep Bs Antigen Negative (Negative) 01/25/25 Hep Bs Antigen NON-REACTIVE (NON-REACTIVE) 03/19/23 Hepatitis C Antibody Negative (Negative) 01/25/25 Hepatitis C Ab (EIA) NON-REACTIVE (NON-REACTIVE) 03/19/23 HIV 1&2 Ab/P24 Ag 4thGn Negative (Negative) 01/25/25 HIV (1&2) Ag & Ab Conf NON-REACTIVE (NON-REACTIVE) 03/19/23 Glucose 1 Hr 50 gm 137 mg/dl (70-130) H 03/03/25 Maternal Serum AFP 21.0 ng/mL 03/03/25 Chlamydia trachomatis RNA Not Detected (NotDetected) 01/25/25 Neisseria gonorrhoeae RNA Not Detected (NotDetected) 01/25/25 Alpha Fetoprotein Triple Screen SEE NOTE 03/03/25 Labs Reviewed: afp neg low risk pano neg horizon Review of Systems : Denies fever, chills, sweats Denies shortness of breath, difficulty breathing, chest pain, palpitations, chest pressure, dysuria, headache, vision changes Discharge Data Procedures Performed Operation Date: 08/17/25 05:25 Actual Procedures p Section in LD(Bilateral) - Mulu Allen MD Hospital Course (1) care and examination: 25yo post-op day--3 s/p section Fells well today Continue post- care Encourage ambulation and Pain controlled Vitals stable D/c today. Follow up in OB office next week for CARLOS MANUEL dressing removal. Follow up in 6 weeks for routine visit. Supervising Physician Co-Signing Physician Notes Resident Physician Supervision Note: I interviewed and examined the patient. Discussed with Dr. George and agree with findings and plan as documented in the note. Any exceptions or clarifications are listed here: doing well, meeting milestones POD#3 from CS. Uterus firm, carlos manuel dressing in place. LE trace edema. Plan for DC home today, scheduled for carlos manuel removal on Friday. Documented By: Sabrina Madera MD Coding Level of Care Code 83709 IN/OBS DISCH 30 MIN/LESS Diagnoses care and examination Z39.2
== END 2025-08-20 14:00 | disposition home or self-care (01) | DRG 787 ==
LOC: 4S1 07:36 → 4E2 08-17 10:53
DX: O62.0 Primary inadequate contractions; O99.214 Obesity complicating childbirth; Z79.82 Long term (current) use of aspirin; Z37.0 Single live birth; Z68.43 Body mass index [BMI] 50.0-59.9, adult; Z3A.39 39 weeks gestation of pregnancy